=== PATIENT | female | born 1980 | race Caucasian/White ===

== ENCOUNTER 2016-05-24 04:17 | Inpatient (IN) | payer OTHER ==
[~2016-05-24] VITALS: Ht 155 cm; Wt 69.9 kg
[~2016-05-24 04:17] MED LIST: CEPH125S PO; PREN1TAB52 PO
[2016-05-24] MEDS ORDERED: RINGERS SOLUTION,LACTATED 1,000 ML IV PRN (04:32)
[2016-05-24] MEDS ORDERED: OXYTOCIN 30 UNITS/LACT RINGERS 500 ML IV ONE (04:32)
[2016-05-24] MEDS ORDERED: RINGERS SOLUTION,LACTATED 1,000 ML IV SCH (04:32)
[2016-05-24] MEDS ORDERED: OXYGEN THERAPY IH PRN (04:45)
[2016-05-24] MEDS ORDERED: FentaNYL CITRATE-PF 100 MCG/2 ML VIAL IVP PRN (04:45)
[2016-05-24] MEDS ORDERED: METOCLOPRAMIDE HCL 5 MG/ML 2 ML VIAL IVP PRN (04:45)
[2016-05-24] MEDS ORDERED: CITRIC ACID/SODIUM CITRATE 30 ML SOLUTION UDCUP PO PRN (04:45)
[2016-05-24 05:10] LABS: BASOPHILS # (AUTO) 0.04 K/uL (0.00-0.20); BASOPHILS % (AUTO) 0.3 % (0.0-2.0); EOSINOPHILS # (AUTO) 0.07 K/uL (0.00-0.70); EOSINOPHILS % (AUTO) 0.55 % (1.0-6.0); HEMATOCRIT 37.5 % (36-46); HEMOGLOBIN 12.6 g/dL (12.0-16.0); LYMPHOCYTES # (AUTO) 2.3 K/uL (1.0-4.8); LYMPHOCYTES % (AUTO) 17.1 % (22.0-44.0); MEAN CORPUSCULAR HEMOGLOBIN 30.9 pg (26.0-34.0); MEAN CORPUSCULAR HGB CONC 33.5 G/dL (31.0-37.0); MEAN CORPUSCULAR VOLUME 92 fL (80-100); MONOCYTES # (AUTO) 0.3 K/uL (0.1-1.0); MONOCYTES % (AUTO) 2.4 % (2.0-9.0); NEUTROPHILS # (AUTO) 10.6 K/uL (1.8-7.7); NEUTROPHILS % (AUTO) 79.7 % (40.0-70.0); RED BLOOD CELL COUNT(AUTO) 4.06 MIL/uL (4.00-5.20); RED CELL DISTRIBUTION WIDTH 14.9 % (11.5-14.5); WHITE BLOOD COUNT (AUTO) 13.3 K/uL (4.5-11.0)
[2016-05-24 05:15] VITALS: BP 122/73
[2016-05-24] MEDS ORDERED: FentaNYL/BUPIV 0.125%/NS/PF 200 ML ED ONE (05:43)
[2016-05-24] MEDS ORDERED: DiphenhydrAMINE HCL 50 MG/ML VIAL IVP PRN (06:30)
[2016-05-24] MEDS ORDERED: PROMETHAZINE HCL 12.5 MG in SODIUM CHLORIDE 0.9% 50 ML IV PRN (06:30)
[2016-05-24] MEDS ORDERED: NALBUPHINE HCL 10 MG/ML VIAL IVP PRN (06:30)
[2016-05-24] MEDS ORDERED: RINGERS SOLUTION,LACTATED 1,000 ML IV ONE (07:12)
[2016-05-24] MEDS ORDERED: GLYCERIN/WITCH HAZEL LEAF 40 PADS JAR TP PRN (07:15)
[2016-05-24] MEDS ORDERED: LIDOCAINE HCL/PF 1% 30 ML VIAL INJ PRN (07:15)
[2016-05-24] MEDS ORDERED: IBUPROFEN 600 MG TABLET PO PRN (07:15)
[2016-05-24] MEDS ORDERED: OxyCODONE HCL/ACETAMINOPHEN 5-325 MG TABLET PO PRN ×2 (07:15)
[2016-05-24] MEDS ORDERED: SENNA/DOCUSATE SODIUM 187-50 MG TABLET PO SCH (09:00)
[2016-05-25 07:24] LABS: BASOPHILS % (AUTO) 0.2 % (0.0-2.0); HEMATOCRIT 35.4 % (36-46); HEMOGLOBIN 11.5 g/dL (12.0-16.0); LYMPHOCYTES # (AUTO) 3.3 K/uL (1.0-4.8); LYMPHOCYTES % (AUTO) 22.6 % (22.0-44.0); MEAN CORPUSCULAR HEMOGLOBIN 30.6 pg (26.0-34.0); MEAN CORPUSCULAR HGB CONC 32.4 G/dL (31.0-37.0); MEAN CORPUSCULAR VOLUME 95 fL (80-100); MONOCYTES # (AUTO) 0.6 K/uL (0.1-1.0); MONOCYTES % (AUTO) 3.9 % (2.0-9.0); NEUTROPHILS # (AUTO) 10.5 K/uL (1.8-7.7); NEUTROPHILS % (AUTO) 72.3 % (40.0-70.0); RED BLOOD CELL COUNT(AUTO) 3.75 MIL/uL (4.00-5.20); RED CELL DISTRIBUTION WIDTH 15.2 % (11.5-14.5); WHITE BLOOD COUNT (AUTO) 14.6 K/uL (4.5-11.0)
[2016-05-25] MEDS ORDERED: IBUP-2070 PO (09:38)
[2016-05-25] MEDS ORDERED: DSS100 PO (09:38)
== END 2016-05-25 10:00 | disposition home or self-care (01) | DRG 775 ==
LOC: 4S 04:17 → OBSVTOIN 04:17
PROVIDERS: ADMIT Specialist; ATTEND Specialist
PROC: 10E0XZZ Delivery of Products of Conception, External Approach (ICD-10-PCS; principal; 2016-05-24)
PROC: 3E0S3CZ (ICD-10-PCS; 2016-05-24)
PROC: 00HU33Z Insertion of Infusion Device into Spinal Canal, Percutaneous Approach (ICD-10-PCS; 2016-05-24)
DX: O69.81X0 Labor and delivery complicated by cord around neck, without compression, not applicable or unspecified (principal); O77.0 Labor and delivery complicated by meconium in amniotic fluid; Z3A.40 40 weeks gestation of pregnancy; Z37.0 Single live birth
CPT/HCPCS: 86762; 87340; J2590; J3490; J7120